=== PATIENT | female | born 1960 | race Caucasian/White ===

== ENCOUNTER 2020-09-23 11:36 | Emergency (ER) | payer SELFPAY ==
[~2020-09-23] VITALS: Ht 170.2 cm; Wt 56.8 kg
[2020-09-23 11:44] VITALS: BP 159/74
== END 2020-09-23 13:39 | disposition home or self-care (01) ==
LOC: M ED 11:36
DX: R68.89 Other general symptoms and signs (principal); E73.9 Lactose intolerance, unspecified